=== PATIENT | male | born 1970 | race Caucasian/White ===

== ENCOUNTER 2018-05-03 06:50 | Day surgery (SDC) ==
[2018-05-03] MEDS ORDERED: LIDOCAINE 1% 20 ML MDV ONE (07:04)
[2018-05-03] MEDS ORDERED: LIDOCAINE 1% 2ML (SURGERY ONLY) INJ ONE (07:04)
[2018-05-03 07:28] VITALS: TEMP 97.8
[2018-05-03] MEDS ORDERED: VERSED ONE (08:15)
[2018-05-03] MEDS ORDERED: DIPRIVAN 20 ML VIAL IVP ONE (08:15)
[2018-05-03 10:53] VITALS: BP 123/67
--- NOTE | 2018-05-04 07:43 | OP ---
PROCEDURE: COLONOSCOPY TO THE CECUM. ENDOSCOPIST: Deneen ROE M.D. INDICATION: SCREENING INSTRUMENT: PCFH-[id number]. MEDICATION: PER ANESTHESIA. PROCEDURE: The patient was positioned for colonoscopy. The digital rectal exam was negative. The colonoscope was inserted through the anus and advanced to the cecum. The cecum was identified using the ileocecal valve and the appendiceal orifice as landmarks. The scope was slowly withdrawn through an adequately prepped colon. Diverticulosis noted throughout the left colon. The retroflex exam was other normal. The patient tolerated the procedure without immediate complications. Withdraw time 9 minutes and 2 seconds. PLAN: 1. Repeat colonoscopy for screening in 10 years or sooner if symptoms warrant. CC: Dr. Markell RICHARDSON
== END 2018-05-03 09:40 | disposition home or self-care (01) ==
LOC: SURG 06:50
PROVIDERS: ATTEND Internal Medicine Gastroenterology
DX: Z12.11 Encounter for screening for malignant neoplasm of colon (principal)

== ENCOUNTER 2018-11-16 06:52 | Outpatient (CLI) | payer OTHER ==
--- NOTE | 2018-11-16 12:39 | STRESSECHO ---
Date of Test: 11/16/18 Ordering Physician: DR. DREW STEPHENS Occupation: SALES/MANAGEMENT Reason for Exam: SOB, DYSLIPIDEMIA, FAMILY H/O HEART DISEASE Smoking History: NONE Height: 69" Weight: 188 LBS Current Medications: LIPITOR, PROTONIX, TRICOR, TESTOSTERONE Resting EKG: SINUS RHYTHM/ NO ACUTE CHANGES Target Heart Rate: 144/170 S-T SEGMENT STAGE MPH/GRADE HEART RATE BPM BLOOD PRESSURE MMHG RHYTHM +/- ELEVATION DEPRESSION SYMPTOMS AT REST 65 BPM 116/60 MMHG SR X NONE 1 1.7/10% 106 BPM 132/72 MMHG SR X NONE 2 2.5/12% 122 BPM 130/68 MMHG SR X NONE 3 3.4/14% 4 4.2/16% 5 5.0/18% Immediately After 144 BPM SR X SHORT OF AIR Minutes Post Exercise 1:00 108 BPM 138/72 MMHG SR X NONE Minutes Post Exercise 6:00 75 BPM 122/62 MMHG SR X NONE DURATION OF EXERCISE: 8:00 MAXIMUM HEART RATE REACHED: 144 BPM REASON FOR TERMINATION: SHORT OF BREATH 100% OXYGEN SATURATION WITH EXERCISE ON ROOM AIR METS 10.1 INTERPRETATION: 1. NO EVIDENCE OF ISCHEMIA BY ST-T WAVE 2. NO CHEST PAIN OR CHEST DISCOMFORT 3. BLOOD PRESSURE RESPONSE: NORMAL AT REST AND WITH EXERCISE 4. NO ARRHYTHMIAS NORMAL LEFT VENTRICULAR CONTRACTILITY--RESTING AND POST EXERCISE BY ECHO MTDD
--- NOTE | 2018-11-16 12:42 | ECHOSTRESS ---
Date of Exam: 11/16/18 Ordering Physician: DR. DREW STEPHENS Reason for Echo: SOB, STRESS TEST --NO ISCHEMIA M-Mode Normal Adult Results LV Dimensions Normal Adult Results AoV Opening excursions >1.6 LVEDD-base- 3.5-5.8 Ao root dimensions 2.0-3.7 LVESD-base- 3.1-4.6 L. Atrium dimensions 1.9-3.8 Post. Wall thickness 0.8-1.1 IV septum (thickness) 0.7-1.2 Post. Wall excursion 0.72-1.3 Septal motion Systolic motion R. Ventricular cavity 1.5-2.0 LVEF 60% Paradoxical septal wall motion 2-D: NORMAL LEFT VENTRICULAR CONTRACTILITY--RESTING AND POST EXERCISE M-MODE: MV: AV: TV: PV: CHAMBER SIZE: WALL MOTION: NORMAL LEFT VENTRICULAR CONTRACTILITY--RESTING AND POST EXERCISE PERICARDIUM: INTERPRETATION: 1. NORMAL LEFT VENTRICULAR CONTRACTILITY--RESTING AND POST EXERCISE MTDD
--- NOTE | 2018-11-18 10:12 | ECHO2D ---
Date of Exam: 11/16/18 Ordering Physician: DR. DREW STEPHENS Room #: OP Reason for Echo: SOB M-Mode Normal Adult Results LV Dimensions Normal Adult Results AoV Opening excursions >1.6 >1.6 LVEDD-base- 3.5-5.8 3.8 Ao root dimensions 2.0-3.7 3.2 LVESD-base- 3.1-4.6 L. Atrium dimensions 1.9-3.8 3.5 Post. Wall thickness 0.8-1.1 1.1 IV septum (thickness) 0.7-1.2 1.1 Post. Wall excursion 0.72-1.3 NORMAL Septal motion NORMAL Systolic motion R. Ventricular cavity 1.5-2.0 NORMAL LVEF 60% 75% Paradoxical septal wall motion NORMAL 2-D : 2-D M Mode Echocardiogram was performed using apical four chamber and left parasternal long and short axis views. Mitral, tricuspid and aortic valves appear to be normal. Contractility of the left ventricle seems to be normal, so is the cavity size. Left atrial cavity size and aortic root appear to be normal. There is no pericardial effusion. There is no thrombus noted in the left ventricular or left aortic cavity. No mitral valve prolapse noted. M-MODE: MV: NORMAL AV: NORMAL TV: NORMAL PV: CHAMBER SIZE: NORMAL WALL MOTION: NORMAL PERICARDIUM: NORMAL INTERPRETATION: 1. BORDERLINE LEFT VENTRICULAR HYPERTROPHY 2. NORMAL LEFT VENTRICULAR CONTRACTILITY 3. NORMAL VALVES MTDD
== END 2018-11-16 06:53 | disposition home or self-care (01) ==
LOC: CAR 06:52
PROVIDERS: ATTEND Internal Medicine
DX: R06.02 Shortness of breath (principal)
CPT/HCPCS: 93005; 93010

== ENCOUNTER 2020-12-09 16:08 | Observation (INO) ==
[2020-12-09 16:16] VITALS: BMI 26.6
[2020-12-09] MEDS ORDERED: SODIUM CHLORIDE 1,000 ML IV STA ×2 (16:21)
[2020-12-09] MEDS ORDERED: PEPCID IVP STA (16:23)
[2020-12-09] MEDS ORDERED: ZOFRAN 4 MG/2 ML IVP STA (16:23)
[2020-12-09] MEDS ORDERED: PROTONIX IV IVP STA (16:23)
--- NOTE | 2020-12-09 16:31 | ED.PDOC ---
General ED Provider: Dr. TOMMY CLARK-ER Chief Complaint: Nausea/Vomiting Stated Complaint: iv been vomiting and cant keep anything down--my step daughter has been ill as well Time Seen by Provider: 12/09/20 16:10 Mode of Arrival: Walk-In Information Source: Patient Primary Care Provider: DREW RAJAN Nursing and Triage Documentation Reviewed and Agree: Yes Does patient meet sepsis criteria?: No System Inflammatory Response Syndrome: Not Applicable Sepsis Protocol: For patient's 13 years and over: Temp is 96.8 and below OR 101 and greater Pulse >90 BPM Resp >20/minute Acutely Altered Mental Status Are patient's symptoms suggestive of a new infection, such as: -Pneumonia -Skin, Soft Tissue -Endocarditis -UTI -Bone, Joint Infection -Implantable Device -Acute Abdominal Infection -Wound Infection -Meningitis -Blood Stream Catheter Infection -Unknown GI Complaint Exam Vomiting/Diarrhea Complaint/Exam Onset/Duration: 12hrs Symptoms Are: Still present Initial Severity: Mild Current Severity: Moderate Character of Vomiting: Reports Non-bilious Aggravating: Reports None Alleviating: Reports None Abdominal Findings: Present None Kussmaul Respirations Present: No Differential Diagnoses: Dehydration Review of Systems Review Of Systems Constitutional: Reports No symptoms Eyes: Reports No symptoms Ears, Nose, Mouth, Throat: Reports No symptoms Respiratory: Reports No symptoms Cardiac: Reports No symptoms GI: Reports Nausea, Poor appetite and Vomiting : Reports No symptoms Musculoskeletal: Reports No symptoms Skin: Reports No symptoms Neurological: Reports No symptoms Endocrine: Reports No symptoms Hematologic/Lymphatic: Reports No symptoms All Other Systems: Reviewed and Negative Physical Exam Physical Exam Appearance: Reports Well-appearing Ill-appearing: Moderate Pain Distress: None Eyes: Reports REID, EOMI and Conjunctiva clear ENT: Reports Ears normal, Nose normal and Oropharynx normal Neck: Supple Respiratory: Reports Airway patent, Breath sounds clear and Breath sounds equal Cardiovascular: Reports RRR, Pulses normal, No rub and No murmur GI/: Reports Soft, Nontender, No masses, Bowel sounds normal and No Organomegaly Musculoskeletal: Reports Normal strength, ROM intact, No edema and No calf tenderness Skin: Reports Warm, Dry and Normal color Neurological: Reports Sensation intact, Motor intact, Reflexes intact, Cranial nerves intact, Alert and Oriented Psychiatric: Reports Affect appropriate and Mood appropriate Interpretation Radiology Interpretation Radiology Interpretation By: Radiologist Radiology Results: Negative Exam Interpreted: CT Scan Re-Evaluation Re-Evaluation Time of Re-Evaluation: 18:42 Status: Improved Vital Signs Stable: Yes Pain Level: 0 Appearance: NAD Lungs: Clear Skin: Warm and Dry Neuro: Alert and Oriented X3 CV: RRR Physician Notification Case Discussed Physician Notified: dr rajan Time of Notification: 18:42 Critical Care Note Critical Care Note Total Critical Care Time (mins): 0 Course Course Hematology/Chemistry: 12/09/20 16:33 12/09/20 16:33 Orders, Labs, Meds: Lab Review 12/09/20 12/09/20 12/09/20 16:25 16:33 16:33 WBC 13.09 H RBC 6.54 H Hgb 19.5 H Hct 57.3 H MCV 87.6 MCH 29.8 MCHC 34.0 RDW Coeff of David 12.1 Plt Count 290 Immature Gran % (Auto) 0.5 Neut % (Auto) 93.9 H Lymph % (Auto) 1.9 L [place] % (Auto) 3.4 Eos % (Auto) 0.0 Baso % (Auto) 0.3 Neut # (Auto) 12.3 H Lymph # (Auto) 0.3 L [place] # (Auto) 0.5 Eos # (Auto) 0.0 Baso # (Auto) 0.0 Immature Gran # (Auto) 0.1 Anisocytosis Not present Spherocytes 2+ Sodium 139.2 Potassium 4.58 Chloride 101.8 Carbon Dioxide 27.4 Anion Gap 14.58 BUN 27.5 H Creatinine 1.30 H Estimated GFR (MDRD) 58.00 BUN/Creatinine Ratio 21.15 Glucose 146.0 H Calcium 10.06 Total Bilirubin 0.74 AST 34.7 ALT 60.0 H Alkaline Phosphatase 50.2 Total Creatine Kinase 119.6 CK-MB (CK-2) 1.080 CK-MB (CK-2) % 0.9000 Troponin I < 0.012 Total Protein 8.59 H Albumin 5.21 H Globulin 3.38 Albumin/Globulin Ratio 1.54 Amylase 93.6 Urine Color Yellow Urine Clarity Clear Urine pH 6.0 Ur Specific [place] >=1.030 Urine Protein 2+ H Urine Glucose (UA) Negative Urine Ketones Negative Urine Blood 2+ H Urine Nitrite Negative Urine Bilirubin 1+ H Urine Urobilinogen 0.2 Ur Leukocyte Esterase Negative Urine Microscopic RBC 0-2 Urine Microscopic WBC 0-2 Ur Squamous Epith Cells 5-10 Amorphous Sediment 1+ Urine Bacteria 1+ Urine Mucus 2+ Adenovirus (PCR) B. pertussis DNA (PCR) B.parapertussis DNA PCR C. pneumoniae DNA (PCR) Coronavirus OC43 (PCR) Coronavirus HKU1 (PCR) Coronavirus 229E (PCR) Coronavirus NL63 (PCR) Human Metapneumovir PCR Influenza Type A (PCR) Influenza B (RT-PCR) M. pneumoniae (PCR) Parainfluenza 1 (PCR) Parainfluenza 2 (PCR) Parainfluenza 3 (PCR) Parainfluenza 4 (PCR) RSV (PCR) Entero/Rhino (PCR) SARS-CoV-2 (PCR) 12/09/20 17:10 WBC RBC Hgb Hct MCV MCH MCHC RDW Coeff of David Plt Count Immature Gran % (Auto) Neut % (Auto) Lymph % (Auto) [place] % (Auto) Eos % (Auto) Baso % (Auto) Neut # (Auto) Lymph # (Auto) [place] # (Auto) Eos # (Auto) Baso # (Auto) Immature Gran # (Auto) Anisocytosis Spherocytes Sodium Potassium Chloride Carbon Dioxide Anion Gap BUN Creatinine Estimated GFR (MDRD) BUN/Creatinine Ratio Glucose Calcium Total Bilirubin AST ALT Alkaline Phosphatase Total Creatine Kinase CK-MB (CK-2) CK-MB (CK-2) % Troponin I Total Protein Albumin Globulin Albumin/Globulin Ratio Amylase Urine Color Urine Clarity Urine pH Ur Specific [place] Urine Protein Urine Glucose (UA) Urine Ketones Urine Blood Urine Nitrite Urine Bilirubin Urine Urobilinogen Ur Leukocyte Esterase Urine Microscopic RBC Urine Microscopic WBC Ur Squamous Epith Cells Amorphous Sediment Urine Bacteria Urine Mucus Adenovirus (PCR) Not detected B. pertussis DNA (PCR) Not detected B.parapertussis DNA PCR Not detected C. pneumoniae DNA (PCR) Not detected Coronavirus OC43 (PCR) Not detected Coronavirus HKU1 (PCR) Not detected Coronavirus 229E (PCR) Not detected Coronavirus NL63 (PCR) Not detected Human Metapneumovir PCR Not detected Influenza Type A (PCR) Not detected Influenza B (RT-PCR) Not detected M. pneumoniae (PCR) Not detected Parainfluenza 1 (PCR) Not detected Parainfluenza 2 (PCR) Not detected Parainfluenza 3 (PCR) Not detected Parainfluenza 4 (PCR) Not detected RSV (PCR) Not detected Entero/Rhino (PCR) Not detected SARS-CoV-2 (PCR) Not detected Orders Category Date Time Status EKG-(ED ONLY) Stat CARDIO 12/09/20 16:21 Completed ED ACCUCHECK ASSESSMENT .ONCE EMERGENCY 12/09/20 16:31 Active ED SHOE REPAIRMAN APPLIED .ONCE EMERGENCY 12/09/20 16:21 Active ED IV/MEDIPORT/POWERPORT .ONCE EMERGENCY 12/09/20 16:21 Active AMYLASE Stat LAB 12/09/20 16:33 Completed CBC W/ AUTO DIFF Stat LAB 12/09/20 16:33 Completed COMPREHENSIVE METABOLIC PANEL Stat LAB 12/09/20 16:33 Completed CREATINE KINASE Stat LAB 12/09/20 16:33 Completed MOLECULAR GROUP A STREP Stat LAB 12/09/20 16:33 Completed RBC MORPHOLOGY Stat LAB 12/09/20 16:33 Completed RESPIRATORY PANEL 2.1 (PCR) Stat LAB 12/09/20 17:10 Completed TROPONIN I Stat LAB 12/09/20 16:33 Completed URINALYSIS C & S IF INDICATED Stat LAB 12/09/20 16:25 Completed URINE CULTURE Stat LAB 12/09/20 16:25 Received 0.9 % Sodium Chloride [Saline Flush] MEDS 12/09/20 16:21 Active 1 syr IVF PRN PRN Famotidine Inj [Pepcid] MEDS 12/09/20 16:23 Discontinued 20 mg IVP ONCE STA Ketorolac Tromethamine [Toradol] MEDS 12/09/20 17:57 Discontinued 30 mg IVP ONCE ONE Ondansetron HCl/Pf [Zofran 4 mg/2 ml] MEDS 12/09/20 16:23 Discontinued 4 mg IVP ONCE STA Pantoprazole Sodium [Protonix IV] MEDS 12/09/20 16:23 Discontinued 40 mg IVP ONCE STA Sodium Chloride 0.9% [Sodium Chloride] 1,000 ml MEDS 12/09/20 16:21 Disconti nued IV BOLUS Sodium Chloride 0.9% [Sodium Chloride] 1,000 ml MEDS 12/09/20 16:[address] ABDOMEN/PELVIS WO CONTRAST Stat RADS 12/09/20 16:[address] HEAD W/O CONTRAST Stat RADS 12/09/20 17:57 Taken Medications Generic Name Dose Route Start Last Admin Trade Name Freq PRN Reason Stop Dose Admin Sodium Chloride 1 syr 12/09/20 16:21 0.9% Sodium Chloride 10 Ml Disp.Syrin IVF PRN PRN To flush IV Discontinued Medications Generic Name Dose Route Start Last Admin Trade Name Manpreet PRN Reason Stop Dose Admin Famotidine 20 mg 12/09/20 16:23 12/09/20 17:07 Famotidine Inj 20 Mg/2 Ml Vial IVP 12/09/20 16:24 20 mg ONCE STA Administration Sodium Chloride 1,000 mls @ 1,000 mls/hr 12/09/20 16:21 12/09/20 17:08 Sodium Chloride IV 12/09/20 17:20 1,000 mls/hr BOLUS STA Administration Sodium Chloride 1,000 mls @ 1,000 mls/hr 12/09/20 16:21 12/09/20 17:54 Sodium Chloride IV 12/09/20 17:20 1,000 mls/hr BOLUS STA Administration Ketorolac Tromethamine 30 mg 12/09/20 17:57 12/09/20 18:11 Ketorolac Tromethamine 30 Mg/Ml Vial IVP 12/09/20 17:58 30 mg ONCE ONE Administration Ondansetron HCl 4 mg 12/09/20 16:23 12/09/20 17:07 Ondansetron Hcl/Pf 4 Mg/2 Ml Sdv IVP 12/09/20 16:24 4 mg ONCE STA Administration Pantoprazole Sodium 40 mg 12/09/20 16:23 12/09/20 17:06 Pantoprazole Sodium 40 Mg Vial IVP 12/09/20 16:24 40 mg ONCE STA Administration Vital Signs: Temp Pulse Resp BP Pulse Ox 12/09/20 18:17 101.7 F H 12/09/20 16:08 99 F 101 H 20 128/81 97 Discharge Plan Discharge Patient Disposition: PLACED OBSERVATION Discharge Problem: Nausea, Vomiting Instructions: Acute Nausea and Vomiting (ED) Prescriptions: No Action pantoprazole 40 MG tablet,delayed release (DR/EC) 40 mg PO DAILY RF: 0 fenofibrate nanocrystallized [Tricor] 48 MG tablet 48 mg PO DAILY RF: 0 Androderm 1 EACH patch 24 hour 1 mg INJ MONTHLY RF: 0 atorvastatin 20 mg tablet 20 mg PO DAILY LAB RF: 0 ED Provider: TOMMY COLEMAN Condition: Good Physician Progress Note: []
[2020-12-09 16:38] LABS: BASOPHILS % (AUTO) 0.3 % (0.0-3.0); HEMATOCRIT 57.3 % (42.0-52.0); HEMOGLOBIN 19.5 g/dl (14.0-18.0); IMMATURE GRANULOCYTE # (AUTO) 0.1 (0.0-1.0); IMMATURE GRANULOCYTE % (AUTO) 0.5 % (0.0-5.0); LYMPHOCYTES # (AUTO) 0.3 K/uL (0.60-3.4); LYMPHOCYTES % (AUTO) 1.9 (10.0-50.0); MEAN CORPUSCULAR HEMOGLOBIN 29.8 pg (27.0-31.0); MEAN CORPUSCULAR VOLUME 87.6 fl (80.0-94.0); MONOCYTES # (AUTO) 0.5 K/uL (0.4-2.0); MONOCYTES % (AUTO) 3.4 (0-10); NEUTROPHILS # (AUTO) 12.3 K/ul (2.0-6.9); NEUTROPHILS % (AUTO) 93.9 % (42.2-75.2); PLATELET COUNT 290 10^3/uL (140-440); RDW COEFFICIENT OF VARIATION 12.1 % (11.6-14.8); RED BLOOD COUNT 6.54 10^6/ul (4.70-6.10); WHITE BLOOD COUNT 13.09 K/ul (4.2-10.2)
[2020-12-09 16:47] LABS: ALBUMIN 5.21 g/dL (3.5-5.0); ALKALINE PHOSPHATASE 50.2 U/L (38-126); AMYLASE 93.6 U/L (30-110); ANISOCYTOSIS NOT PRESENT (NOT PRESENT); ASPARTATE AMINO TRANSFERASE 34.7 U/L (17-59); BILIRUBIN,TOTAL 0.74 mg/dL (0.2-1.3); BLOOD UREA NITROGEN 27.5 mg/dL (9-20); CALCIUM 10.06 mg/dL (8.4-10.2); CARBON DIOXIDE 27.4 mmol/L (22-30.0); CHLORIDE 101.8 mmol/L (98-107); CREATINE KINASE 119.6 U/L (55-170); POTASSIUM 4.58 mmol/L (3.5-5.1); SODIUM 139.2 mmol/L (134.5-145); SPHEROCYTES 2+ (NOT PRESENT); TOTAL PROTEIN 8.59 g/dL (6.3-8.2)
[2020-12-09 16:59] LABS: TROPONIN I < 0.012 ng/ml (0.0000-0.120)
[2020-12-09 17:01] LABS: BILIRUBIN,URINE 1+ (NEGATIVE); CLARITY,URINE Clear (CLEAR); COLOR,URINE Yellow (YELLOW); GLUCOSE, URINE (UA) Negative (NEGATIVE); KETONES,URINE Negative (NEGATIVE); LEUKOCYTE ESTERASE ,URINE Negative (NEGATIVE); NITRITE,URINE Negative (NEGATIVE); PROTEIN,URINE 2+ (NEGATIVE); URINE, BLOOD 2+ (NEGATIVE); UROBILINOGEN,URINE 0.2 (0.2)
--- NOTE | 2020-12-09 17:04 | CT ---
EXAM: CT abdomen and pelvis without contrast. HISTORY: Vomiting TECHNIQUE: Multi-slice transaxial helical CT. Coronal and sagittal reformatons were performed. CT was performed using dose optimization techniques such as automated exposure control and/or mA/kV adju stment according to patient size. COMPARISON: 03/11/2016. FINDINGS: The heart is normal in size. Dependent patchy ground-glass opacities are seen in the right lung base . Additional minimal patchy ground-glass opacities are seen in the lingula. Evaluation of the solid organs is limited without IV contrast. The gallbladder and the spleen appear normal in size. Pancreas and the bilateral adrenal glands appear grossly unremarkable. No intrahep atic biliary dilation is seen. Punctate nonobstructing stone in the superior pole of the right kidne y is seen. No evidence of hydronephrosis or ureteral stone is seen. The bowel is not dilated. Fluid-filled nondilated small bowel loops are seen which are nonspecific. Prostate is enlarged measuring 5.0 cm transverse diameter. Urinary bladder is nondistended. No pel jose free fluid is seen. A few diverticuli are seen within the colon without evidence of diverticulit is. The appendix appears grossly unremarkable. Numerous tiny mesenteric lymph nodes with subtle mes enteric ground-glass density appears similar compared to prior exam. Tiny periumbilical fat-containi ng hernia is seen. Mild disc space narrowing with tiny endplate osteophytes are seen T10-T11. IMPRESSION: 1. Prominent fluid filled nondilated small bowel loops which are nonspecific. This can be seen with ileus or enteritis. 2. Similar appearing ground-glass densities and numerous tiny mesenteric lymph nodes. This can be a normal variant or related to panniculitis. 3. Patchy ground-glass opacities in the lung bases which can be seen with atelectasis versus pneumon ia. 4. Colonic diverticulosis. 5. Punctate nonobstructing right renal stone. 6. Prostatic enlargement. 7. Limited exam without contrast. All CT scans are performed using dose optimization techniques as appropriate to the performed exam an d include at least one of the following: Automated exposure control, adjustment of the mA and/or kV according t o size, and the use of iterative reconstruction technique.
[2020-12-09 17:09] LABS: AMORPHOUS SEDIMENT,UR 1+ (NOT PRESENT); URINE RBC, MICROSCOPIC 0-2 (0-2); URINE WBC, MICROSCOPIC 0-2 (0-2)
[2020-12-09 17:10] LABS: BACTERIA,URINE 1+ (NOT PRESENT); MUCUS,URINE 2+ (NOT PRESENT)
[2020-12-09] MEDS ORDERED: TORADOL IVP ONE (17:57)
[2020-12-09] MEDS ORDERED: TYLENOL PO PRN (18:45)
--- NOTE | 2020-12-09 18:48 | CT ---
EXAM: CT Head HISTORY: Headache COMPARISON: 02/14/2020 TECHNIQUE: CT head performed without contrast. FINDINGS: There is no mass effect, midline shift, or intracranial hemmorhage. [place] white differenti ation is preserved. There is no extra-axial collection. The ventricles and sulci are unremarkable. The basal cisterns are patent. There is no depressed calvarial fracture. The mastoid air cells are clear. Clear paranasal sinuses. IMPRESSION: No acute intracranial abnormality. All CT scans are performed using dose optimization techniques as appropriate to the performed exam an d include at least one of the following: Automated exposure control, adjustment of the mA and/or kV according t o size, and the use of iterative reconstruction technique.
[2020-12-09] MEDS: D5%-NS-KCL 20 MEQ/L IV SOL 1,000 ML IV SCH (20:45)
[2020-12-09] MEDS ORDERED: XANAX PO PRN (21:26)
[2020-12-09] MEDS: PROTONIX IV IVP SCH (21:48)
[2020-12-09] MEDS: TORADOL IVP PRN (21:49)
[2020-12-09] MEDS: ZOFRAN 4 MG/2 ML IVP PRN (21:49)
[2020-12-10 05:29] LABS: HEMATOCRIT 44.1 % (42.0-52.0); MEAN CORPUSCULAR HEMOGLOBIN 29.9 pg (27.0-31.0); PLATELET COUNT 215 10^3/uL (140-440); RDW COEFFICIENT OF VARIATION 12.3 % (11.6-14.8); RED BLOOD COUNT 5.01 10^6/ul (4.70-6.10); WHITE BLOOD COUNT 7.65 K/ul (4.2-10.2)
[2020-12-10 05:40] LABS: ANISOCYTOSIS NOT PRESENT (NOT PRESENT)
[2020-12-10 05:46] LABS: ALANINE AMINOTRANSFERASE 34.1 U/L (0-50); ALBUMIN 3.51 g/dL (3.5-5.0); ALKALINE PHOSPHATASE 31.6 U/L (38-126); ASPARTATE AMINO TRANSFERASE 35.5 U/L (17-59); BILIRUBIN,TOTAL 0.45 mg/dL (0.2-1.3); BLOOD UREA NITROGEN 27.3 mg/dL (9-20); CALCIUM 8.1 mg/dL (8.4-10.2); CARBON DIOXIDE 21.3 mmol/L (22-30.0); CHLORIDE 107.9 mmol/L (98-107); CREATININE 1.15 mg/dL (0.60-1.10); GLUCOSE 113.5 mg/dL (74-106); POTASSIUM 3.71 mmol/L (3.5-5.1); TOTAL PROTEIN 5.88 g/dL (6.3-8.2)
[2020-12-10] MEDS ORDERED: PROTONIX PO SCH (06:30)
[2020-12-10] MEDS ORDERED: D5%-NS-KCL 20 MEQ/L IV SOL 1,000 ML IV SCH (08:33)
[2020-12-10] MEDS ORDERED: LIPITOR PO SCH (09:00)
[2020-12-10] MEDS ORDERED: TRIGLIDE PO SCH (09:00)
--- NOTE | 2020-12-10 09:21 | PCM.PROG ---
Attending Provider: ATTENDING PROVIDER: Dr. DREW STEPHENS This patient is seen with Edwina Whiting, Nurse Practitioner. DATE OF SERVICE: 12/10/20 SUBJECTIVE: This 50 year old /WHITE M was hospitalized 12/09/20. The patient is resting comfortably. No vomiting since last night. Had fever last night. One lose stool. Kidney function has improved. The patient would like to go home today. REVIEW OF SYSTEMS: CONSTITUTIONAL: No night sweats. No fatigue, malaise, lethargy. No fever or chills. Weakness. HEENT: Eyes: No visual changes. No eye pain. No eye discharge. ENT: No runny nose. No epistaxis. No sinus pain. No odynophagia. No congestion. RESPIRATORY: No cough, no congestion. No hemoptysis. No shortness of breath. CARDIOVASCULAR: No angina symptoms. No CHF symptoms. No atypical chest pain for CAD. No palpitations. No orthopnea.. GASTROINTESTINAL: No abdominal pain. Nausea. No diarrhea or constipation. No hematemesis. No hematochezia. GENITOURINARY: No urgency. No frequency. No dysuria. No hematuria. No obstructive symptoms. No discharge. No pain. No significant abnormal bleeding. MUSCULOSKELETAL: No musculoskeletal pain; no joint swelling. NEUROLOGICAL: Awake, alert, oriented to time, place and person. No headache. No neck pain. No syncope. No seizures. No dizziness. PSYCHIATRIC: Not anxious. No depression. No suicidal thoughts. No homicidal thoughts. SKIN: No rash. No lesions. No wounds. ENDOCRINE: No unexplained weight loss. No weight gain. HEMATOLOGIC/LYMPHATIC: No anemia. No purpura. No petechiae. No prolonged or excessive bleeding. No palpable lymph nodes. PHYSICAL EXAMINATION: GENERAL: The patient is awake, alert and oriented, lying in bed in no distress. VITAL SIGNS: Temperature 99.5 F, Pulse 102, Respiratory Rate 18, BP 93/58, Pulse Ox 96% HEENT: Head normocephalic, atraumatic. Eyes: Extraocular muscles are intact. Pupils are equal, round and reactive to light and accommodation. Ears: No lesions. Nose appeared normal. Throat: No exudate or erythema. NECK: Supple. No JVD, no carotid bruit. No lymphadenopathy or thyromegaly. LUNGS: Clear to auscultation. Percussion note normal. Chest symmetrical. HEART: S1, S2, no S3. No murmurs. No cyanosis or clubbing. No ascites. Pulses: Dorsalis pedis and posterior tibial pulses +1 to +2 both sides. ABDOMEN: Soft. Non-tender. Bowel sounds active. No CVA tenderness. No mass felt. EXTREMITIES: No edema. Full range of motion of all extremities, equal. NEUROLOGIC: No focal deficit. Cranial nerves II through XII are grossly intact. No headache. No double vision. SKIN: Not dry. Intact. Turgor-normal. LYMPHATIC: No palpable lymph nodes/no lymphedema. MUSCULOSKELETAL: Normal joints with no swelling. Muscle tone is normal. LAB REVIEW: 12/10/20 05:00 12/10/20 05:00 12/10/20 05:00: Sodium 137.0, Potassium 3.71, Chloride 107.9 H, Carbon Dioxide 21.3 L, Anion Gap 11.51, BUN 27.3 H, Creatinine 1.15 H, Estimated GFR (MDRD) 67.00, BUN/Creatinine Ratio 23.73, Glucose 113.5 H, Calcium 8.10 L, Total Bilirubin 0.45, AST 35.5, ALT 34.1, Alkaline Phosphatase 31.6 L, Total Protein 5.88 L, Albumin 3.51, Globulin 2.37, Albumin/Globulin Ratio 1.48 12/10/20 05:00: WBC 7.65 D, RBC 5.01 D, Hgb 15.0 D, Hct 44.1 D, MCV 88.0, MCH 29.9, MCHC 34.0, RDW Coeff of David 12.3, Plt Count 215, Neutrophils % (Manual) 86.0 H, Lymphocytes % (Manual) 3.0 L, Monocytes % (Manual) 10.0, Eos inophils % (Manual) 1.0, Anisocytosis Not present 12/09/20 17:10: Adenovirus (PCR) Not detected, B. pertussis DNA (PCR) Not detected, B.parapertussis DNA PCR Not detected, C. pneumoniae DNA (PCR) Not detected, Coronavirus OC43 (PCR) Not detected, Coronavirus HKU1 (PCR) Not d etected, Coronavirus 229E (PCR) Not detected, Coronavirus NL63 (PCR) Not detected, Human Metapneumovir PCR Not detected, Influenza Type A (PCR) Not detected, Influenza B (RT-PCR) Not detected, M. pneumoniae (PCR) Not detected, Parainfluenza 1 (PCR) Not detected, Parainfluenza 2 (PCR) Not detected, P arainfluenza 3 (PCR) Not detected, Parainfluenza 4 (PCR) Not detected, RSV (PCR) Not detected, Entero/Rhino (PCR) Not detected, SARS-CoV-2 (PCR) Not detected 12/09/20 16:33: Sodium 139.2, Potassium 4.58, Chloride 101.8, Carbon Dioxide 27.4, Anion Gap 14.58, BUN 27.5 H, Creatinine 1.30 H, Estimated GFR (MDRD) 58.00, BUN/Creatinine Ratio 21.15, Glucose 146.0 H, Calcium 10.06, Total Bilirubin 0.74, AST 34.7, ALT 60.0 H, Alkaline Phosphatase 50.2, Total Creatine Kinase 119.6, CK-MB (CK-2) 1.080, CK-MB (CK-2) % 0.9000, Troponin I < 0.012, Total Protein 8.59 H, Albumin 5.21 H, Globulin 3.38, Albumin/Globulin Ratio 1.54, Amylase 93.6 12/09/20 16:33: WBC 13.09 H, RBC 6.54 H, Hgb 19.5 H, Hct 57.3 H, MCV 87.6, MCH 29.8, MCHC 34.0, RDW Coeff of David 12.1, Plt Count 290, Immature Gran % (Auto) 0.5, Neut % (Auto) 93.9 H, Lymph % (Auto) 1.9 L, [place] % (Auto) 3.4, Eos % (Auto) 0.0, Baso % (Auto) 0.3, Neut # (Auto) 12.3 H, Lymph # (Auto) 0.3 L, [place] # (Auto) 0.5, Eos # (Auto) 0.0, Baso # (Auto) 0.0, Immature Gran # (Auto) 0.1, Anisocytosis Not present, Spherocytes 2+ 12/09/20 16:25: Urine Color Yellow, Urine Clarity Clear, Urine pH 6.0, Ur Specific [place] >=1.030, Urine Protein 2+ H, Urine Glucose (UA) Negative, Urine Ketones Negative, Urine Blood 2+ H, Urine Nitrite Negative, Urine Bilirubin 1+ H , Urine Urobilinogen 0.2, Ur Leukocyte Esterase Negative, Urine Microscopic RBC 0-2, Urine Microscopic WBC 0-2, Ur Squamous Epith Cells 5-10, Amorphous Sediment 1+, Urine Bacteria 1+, Urine Mucus 2+ ASSESSMENT: Please see below. 1. Dehydration 2. Acute gastroenteritis 3. Acute on chronic back pain PLAN: 1. The patient's kidney function has improved with IV fluids. No vomiting since being here. The patient is adamant about leaving this afternoon. He states he is feeling better. 2. IV Zofran now 3. Increase the fluids to 100 4. [place]ink[place] diet. Plan and coordination of the patient's care discussed in the presence of Boiler Engineer and nurse. SCRIBED BY: Neida SONG scribed while in presence of service performed by Dr. Stephens/Edwina Whiting APRN on 12/10/20 (2311)
[2020-12-10] MEDS: TORADOL IVP PRN ×2 (09:33→16:29)
[2020-12-10] MEDS: ZOFRAN 4 MG/2 ML IVP PRN (09:33)
[2020-12-10] MEDS: PROTONIX IV IVP SCH (09:34)
[2020-12-10] MEDS: D5%-NS-KCL 20 MEQ/L IV SOL 1,000 ML IV SCH (09:41)
[2020-12-10 14:05] VITALS: BP 125/80; TEMP 98
--- NOTE | 2020-12-11 09:20 | PN ---
DATE OF SERVICE: 12/09/20 (ADMISSION NOTE) SUBJECTIVE: The patient was hospitalized through the emergency room because of severe vomiting started at 4:30 a.m. today. At that time he came to the emergency room in the afternoon he had already vomited 12 times. Abdominal soreness from vomiting, diarrhea. No fever, no chills but the patient is fatigued and lightheaded. His called me and I advised him to go to the emergency room. The ER physician, Dr. Lamar, found him very dry with dry mucous membranes. His creatinine was 1.3 with BUN of 27, hemoglobin was 19 with hematocrit of 58. UA also showed high specific gravity. PHYSICAL EXAMINATION: HEENT: Head normocephalic, atraumatic. Eyes: Extraocular muscles are intact. Pupils are equal, round and reactive to light and accommodation. Ears: No lesions. Nose appeared normal. Throat: No exudate or erythema. NECK: Supple. No JVD, no carotid bruit. No lymphadenopathy or thyromegaly. LUNGS: Clear to auscultation. Percussion note normal. Chest symmetrical. HEART: S1, S2, no S3. No murmurs. No cyanosis or clubbing. No ascites. Pulses: Dorsalis pedis and posterior tibial pulses +1 to +2 bilaterally. ABDOMEN: Soft. Nontender. Bowel sounds active. No CVA tenderness. No mass felt. EXTREMITIES: No edema. Full range of motion of all extremities, equal. NEUROLOGIC: No focal deficit. Cranial nerves II through XII are grossly intact. No headache. No double vision. SKIN: Not dry. Intact. Turgor - normal. LYMPHATIC: No palpable lymph nodes/no lymphedema. MUSCULOSKELETAL: Normal joints with no swelling. Muscle tone is normal. By the time I saw the patient at around 9 p.m. at 1:08 the patient's hydration status has improved. He was still feeling nauseated. He had eaten Jello and was still uncomfortable with it. ASSESSMENT: 1. Severe dehydration with acute gastritis, viral. 2. Mild renal azotemia. 3. History of hypoglycemia. 4. Hypogonadism on testosterone. PLAN: 1. Continue IV fluids 75 cc/hr. The patient was already given 2L of D5 NS in the emergency room. 2. Continue Zofran. 3. The patient needs something to rest. Given Xanax 0.5. 4. Also start Protonix IV 40 now and q.12. He takes Protonix at home p.o. 5. Toradol 30 mg IV to be given for the patient's back pain. 6. The patient has telemetry. 7. He will have CBC, CMP done in the morning. The patient was explained of the findings. He was oriented to person, place and person. Also, talked to the on the phone about his medical condition, treatment plan. CONDITION: Stable. TIME SPENT: More than 30 minutes. Plan and coordination of the patient's care discussed in the presence of nurse. DYLAN
--- NOTE | 2020-12-17 13:29 | PN ---
DATE OF SERVICE: 12/10/2020 SUBJECTIVE: The patient was seen and examined with the Nurse Practitioner. The patient's condition has improved. Nausea practically has subsided. He is hungry, a little tired. The kidney functions have improved. The patient is going to be discharged home on Zofran, Protonix. He was advised to eat small frequent meals and stay home for a couple of days until he is seen back on followup. TIME SPENT: More than 30 minutes. Plan and coordination of the patient's care discussed in the presence of nurse. DYLAN
--- NOTE | 2020-12-17 13:30 | PN ---
12/09/2020: Level 5 12/10/2020: D as in discharge MTDD
--- NOTE | 2020-12-20 14:08 | SSS ---
DATE OF SERVICE: 12/09/20 (ADMIT) 12/10/20 (DISCHARGE) REASON FOR CONSULTATION/ADMISSION: Dehydration/nausea/vomiting. HISTORY OF PRESENT ILLNESS: 50-year-old male with onset of nausea and vomiting starting at 5 a.m. on 12/09/20. The patient reported hourly vomiting and lower back pain, presented to the ER at 1600. REVIEW OF SYSTEMS: CONSTITUTIONAL: Fever. No night sweats. No fatigue, malaise, lethargy. No chills. HEENT: Eyes: No visual changes. No eye pain. No eye discharge. ENT: No runny nose. No epistaxis. No sinus pain. No sore throat. No odynophagia. No ear pain. No congestion. RESPIRATORY: No cough, no congestion. No hemoptysis. No shortness of breath. CARDIOVASCULAR: No angina symptoms. No CHF symptoms. No atypical chest pain for CAD. No palpitations. No orthopnea. GASTROINTESTINAL: Nausea and vomiting, decreased vomiting. No abdominal pain. No diarrhea or constipation. No hematemesis. No hematochezia. GENITOURINARY: No dysuria. No hematuria. No obstructive symptoms. No discharge. No pain. No significant abnormal bleeding. MUSCULOSKELETAL: No musculoskeletal pain. No joint swelling. NEUROLOGICAL: Awake, alert, oriented to time, place and person. No headache. No neck pain. No syncope. No seizures. No dizziness. PSYCHIATRIC: Not anxious. No depression. No suicidal thoughts. No homicidal thoughts. SKIN: No rash. No lesions. No wounds. ENDOCRINE: No unexplained weight loss. No weight gain. HEMATOLOGIC/LYMPHATIC: No anemia. No purpura. No petechiae. No prolonged or excessive bleeding. No palpable lymph nodes. PAST MEDICAL HISTORY: Dyslipidemia Diverticulosis(CT) Nonobstructing Right renal stone (CT) Enlarged prostate (CT), low testosterone Hypoglycemia PERSONAL/FAMILY HISTORY/SOCIAL HISTORY: , lives at home. Employed. Nonsmoker. Independent with ADLs. Glucometer at home to check blood sugar 2-3 times daily. PHYSICAL EXAMINATION: GENERAL: The patient is a male age [age] years old. VITAL SIGNS: Height 5'9", weight 180, BMI 26.6, temperature 99.9, pulse 104, respiratory rate 18, BP 119/70. 95% RA. HEENT: Head normocephalic, atraumatic. Eyes: Extraocular muscles are intact. Pupils are equal, round and reactive to light and accommodation. Ears: No lesions. Nose appeared normal. Throat: No exudate or erythema. NECK: Supple. No JVD, no carotid bruit. No lymphadenopathy or thyromegaly. LUNGS: Clear to auscultation. Percussion note normal. Chest symmetrical. HEART: S1, S2, no S3. Regular rate and rhythm. No murmurs. No cyanosis or clubbing. No ascites. Pulses: Dorsalis pedis and posterior tibial pulses +1 to +2 bilaterally. ABDOMEN: Soft. Nontender. Bowel sounds active. No CVA tenderness. No mass felt. EXTREMITIES: No edema. Full range of motion of all extremities, equal. NEUROLOGIC: No focal deficit. Cranial nerves II through XII are grossly intact. No headache, no double vision or headache. SKIN: Not dry. Intact. Turgor - normal. LYMPHATIC: No palpable lymph nodes/no lymphedema. MUSCULOSKELETAL: Normal joints with no swelling. Muscle tone is normal. Old/present records reviewed Office records reviewed. Education carried out about: viral illness, BRAT diet, increased rest, increase in fluids, stay indoors. ALLERGIES: CODEINE MEDICATIONS: Atorvastatin Pantoprazole Tricor Androderm LABS/EKG'S/X-RAY/ECHO/ABG: CT head - no acute. CT abdomen and pelvis - prominent fluid filled nondilated small bowel loops, diverticulosis, prostatic enlargement. WBC 13.09, hemoglobin 19.5, platelets 290, hematocrit 57.3. Sodium 139.02, cholesterol 101.8, BUN 27.5, glucose 146, K+ 4.58, c02 27.4, creatinine 1.30. Total protein 8.59. Urinalysis 2+ protein, 1+ bilirubin, 2+ blood, 1+ bacteria, Specific gravity greater than 1.030. PROGRESS NOTES: See EMR. Case Discussed with Attending Physician: Yes Case Discussed with Family: Yes DIAGNOSES: 1. Acute dehydration with renal azotemia. 2. Acute gastroenteritis. 3. Hypertension. RECOMMENDATIONS/PLAN: 1. Discharge home. 2. [place] diet 3-4 days. 3. Prescription for Protonix 40 mg daily times 14 days, Zofran 4 mg one q.6hr p.o. nausea/vomiting, Lomotil 2.5 mg t.i.d. p.r.n. diarrhea. Called #2. 4. Office followup December [address] Guillaume/Edwina Whiting APRN. TIME SPENT: More than 70 minutes. DYLAN
== END 2020-12-10 16:45 | disposition home or self-care (01) ==
LOC: ED 16:08 → MEDSURG A 16:08
PROVIDERS: ADMIT Internal Medicine; ATTEND Internal Medicine
DX: K52.9 Noninfective gastroenteritis and colitis, unspecified; M54.9 Dorsalgia, unspecified; E29.1 Testicular hypofunction; E86.0 Dehydration; R79.89 Other specified abnormal findings of blood chemistry; R11.2 Nausea with vomiting, unspecified; I10 Essential (primary) hypertension; Z20.822 Contact with and (suspected) exposure to COVID-19